=== PATIENT | male | born 1930 | race Caucasian/White ===

== ENCOUNTER 2017-08-28 11:31 | Inpatient (IN) | payer OTHER ==
[~2017-08-28] VITALS: Ht 177.8 cm; Wt 55.8 kg
[~2017-08-28 11:31] MED LIST: FUROSEMIDE40 MG PO; LASIX40 MG PO; LISINOPRIL20 MG PO; LORTAB 7.5-5001 EACH PO; LOVASTATIN40 MG PO; LOVENOX40 MG/0.4 SC; VOLTAREN100 GM
--- OUTSIDE RECORDS SUMMARY | 2017-08-28 11:34 | XMS REPORT ---
Author Author [facility] Address Unknown Phone Unavailable Care Team Providers Care Pulvi Mixer Operator Name Role Phone JOSÉ SKELTON Unavailable Unavailable Problems This patient has no known problems. Allergies, Adverse Reactions, Alerts This patient has no known allergies or adverse reactions. Medications This patient has no known medications. Results Test Description Test Time Test Comments Text Results Atomic Results Result Comments Stress Test - Treadmill ONLY [address] [address] Patient Name : NABIL ANGEL MR #: [id number] : 1930 Age/Sex: 86/M Adm Physician : JOSÉ SKELTON MD Admit Date : Location : [place] Room/Bed : REPORT: Cardiology Report DATE OF STUDY: February 05, 2017 LEXISCAN NUCLEAR STRESS TEST INDICATIONS: Chest pain. DESCRIPTION OF PROCEDURE: After informed consent, patient was brought to the stress lab. He was given 10.8 millicuries of technetium 99 Myoview, and myocardial perfusion SPECT images were obtained in the horizontal long-axis, short-axis and vertical long -axis views. Subsequently, patient was 0.4 mg of Lexiscan over 10 seconds. Patient was given 32.3 millicuries of technetium 99 Myoview, and myocardial perfusion SPECT images were obtained in the horizontal long-axis, short-axis and vertical long-axis views. Gating images were also obtained. The patient tolerated this procedure without any complications. REPORT: Baseline EKG shows sinus rhythm at 65 beats per minute, normal axis, LVH, right bundle right block, secondary ST-T changes. PARAMETERS 1. Resting heart rate is 65 beats per minute. 2. Maximum heart rate 88 beats per minute. 3. Resting blood pressure 120/54 mmHg. 4. Maximum blood pressure 145/57 mmHg. REASON FOR TERMINATION: Endpoint attained. INTERPRETATION 1. Negative for chest pain. 2. Negative for arrhythmias. 3. Blood pressure response consistent with Lexiscan. 4. No significant ST-T changes seen during Lexiscan infusion compared to baseline. 5. Analysis of SPECT images reveals a small area of decreased radioisotope uptake in the inferior wall both during rest and stress without any significant reversible perfusion defects. CONCLUSION: 1. This study demonstrates a small area of inferior wall infarction. No significant ischemia is noted. 2. Left ventricle appears to be dilated. 3. Diffuse hyperkinesis of the left ventricle is noted. 4. Overall ejection fraction is 39%. Job#: [id number] EV Signature Date Dictated By: JOSÉ SKELTON MD Transcribed By: MARIANELA on 02/12/17 <Electronically signed by JOSÉ SKELTON MD><<Signature on File>>02/13/17 [id number] COPY TO:
[2017-08-28] MEDS ORDERED: PANTOPRAZOLE 40 MG 10ML VIAL IV STA (11:44)
[2017-08-28 11:57] LABS: BASOPHILS % 0.1 % (0.0-1.0); HEMATOCRIT 38.9 % (38.2-49.6); HEMOGLOBIN 12.9 g/dL (14.0-18.0); LYMPHOCYTES # (AUTO) 0.5 (1.0-3.2); LYMPHOCYTES % 3.3 % (18.0-39.1); MEAN CORPUSCULAR HEMOGLOBIN 30.7 pg (28-32); MEAN CORPUSCULAR HGB CONC 33.2 g/dL (31-35); MEAN CORPUSCULAR VOLUME 92.6 fL (81-99); MONOCYTES # (AUTO) 1.4 (0.2-0.8); MONOCYTES % 10.2 % (4.4-11.3); NEUTROPHILS # (AUTO) 11.8 (2.1-6.9); PLATELET COUNT 232 x10e3/uL (140-360); RED CELL DISTRIBUTION WIDTH 14.7 % (11.7-14.4)
[2017-08-28 12:10] LABS: INR 1.41; PROTHROMBIN TIME 16.2 seconds (11.9-14.5)
[2017-08-28 12:11] LABS: PARTIAL THROMBOPLASTIN TIME 27.3 seconds (23.8-35.5)
[2017-08-28 12:18] LABS: ALBUMIN 3.7 g/dL (3.5-5.0); ALBUMIN/GLOBULIN RATIO 1.2 (0.8-2.0); ANION GAP 16.2 mmol/L (8-16); CALCIUM 9.1 mg/dL (8.4-10.2); CREATININE, SERUM 2.26 mg/dL (0.72-1.25); MAGNESIUM 2.4 MG/DL (1.3-2.1); POTASSIUM 5.2 mmol/L (3.5-5.1)
--- NOTE | 2017-08-28 12:18 | Diagnostic Imaging Report ---
PROCEDURE:CHEST SINGLE (PORTABLE) TECHNIQUE:Portable AP chest INDICATION:Shortness of breath COMPARISON:[facility], DX, CHEST SINGLE (PORTABLE), 12/27/2016, 5:42. FINDINGS: Small pleural effusions (right greater than left) with mild cardiomegaly and central vascular prominence. Bilateral lower lobe alveolar opacities. Multiple calcified granulomas bilaterally. Stable aortic arch calcification. Grossly intact skeleton. CONCLUSION: 1. Cardiomegaly with small pleural effusions and central vascular congestion. 2. Bilateral lower lobe airspace opacities consistent with atelectasis with or without superimposed pneumonia. Dictated by: Raymond Templeton M.D. on 08/28/2017 at 12:19 Electronically approved by: Raymond Templeton M.D. on 08/28/2017 at 12:19
[2017-08-28] MEDS ORDERED: SODIUM CHLORIDE 0.9% 1000ML 1,000 ML IV STA (12:21)
[2017-08-28 12:24] LABS: CREATINE KINASE MB 4.2 ng/mL (0-5.0)
[2017-08-28] MEDS ORDERED: LEVOFLOXACIN 500MG/D5W 100ML 100 ML IV ONE (12:30)
[2017-08-28] MEDS ORDERED: LEVALBUTEROL HCL SOLN NEBU 0.63 MG/3 ML NEB INH ONE (12:30)
[2017-08-28] MEDS ORDERED: METHYLPREDNISOLONE SOD SUCC 125 MG/2ML VIAL IV ONE (12:30)
[2017-08-28] MEDS ORDERED: FUROSEMIDE INJ 10 MG/ML 4 ML VIAL IV ONE (12:30)
[2017-08-28] MEDS ORDERED: IPRATROPIUM BROMIDE 0.02% 2.5 ML NEB NEB ONE (12:30)
[2017-08-28] MEDS ORDERED: ASPIRIN 81 MG CHEW TAB PO ONE (12:45)
[2017-08-28] MEDS ORDERED: LEVOFLOXACIN 250MG/D5W 50ML 50 ML IV SCH (12:45)
[2017-08-28] MEDS: LEVALBUTEROL HCL SOLN NEBU 1.25 MG/3 ML NEB INH SCH ×2 (13:00→20:00)
[2017-08-28] MEDS ORDERED: SOD POLYSTYRENE SULFONATE SUSP 15 GM/60 ML BTL PO ONE (13:00)
[2017-08-28] MEDS: IPRATROPIUM BROMIDE 0.02% 2.5 ML NEB NEB SCH ×2 (13:00→20:00)
[2017-08-28] MEDS ORDERED: METHYLPREDNISOLONE SOD SUCC 40 MG/ML VIAL IV SCH (14:00)
[2017-08-28 14:10] VITALS: BP 128/72
[2017-08-28 14:27] LABS: BILIRUBIN,URINE NEGATIVE (NEGATIVE); CLARITY,URINE CLEAR (CLEAR); COLOR,URINE YELLOW (YELLOW); KETONES,URINE NEGATIVE (NEGATIVE); LEUKOCYTE ESTERASE ,URINE NEGATIVE (NEGATIVE); NITRITE,URINE NEGATIVE (NEGATIVE); URINE UROBILINOGEN 0.2 mg/dL (0.2 - 1)
[2017-08-28 14:29] LABS: PROTEIN,URINE DIPSTICK 1+ (NEGATIVE)
[2017-08-28 14:30] VITALS: BP 128/72
[2017-08-28 14:40] LABS: BACTERIA,URINE RARE /HPF; EPITHELIAL CELLS,URINE RARE /LPF
[2017-08-28 16:29] LABS: CHOL/HDL RATIO 3.4 (3.9-4.7)
[2017-08-28] MEDS: METOPROLOL TARTRATE 25 MG TAB PO SCH (16:30)
[2017-08-28] MEDS ORDERED: FUROSEMIDE INJ 10 MG/ML 4 ML VIAL IV SCH (17:00)
[2017-08-28] MEDS ORDERED: FAMOTIDINE 20 MG/2 ML VIAL IV SCH (17:00)
[2017-08-28 21:12] LABS: CREATINE KINASE MB 4.4 ng/mL (0-5.0)
[2017-08-29] VITALS: BP 128/72
[2017-08-29] MEDS: IPRATROPIUM BROMIDE 0.02% 2.5 ML NEB NEB SCH ×4 (01:00→19:55)
[2017-08-29] MEDS: LEVALBUTEROL HCL SOLN NEBU 1.25 MG/3 ML NEB INH SCH ×4 (01:00→19:55)
--- NOTE | 2017-08-29 01:34 | Diagnostic Imaging Report ---
EXAM: CT Chest WITHOUT contrast 08/29/2017 12:49 AM INDICATION: Shortness of breath COMPARISON: None TECHNIQUE: Chest was scanned utilizing a multidetector helical scanner from the lung apex through the level of the adrenal glands without administration of IV contrast. Absence of intravenous contrast decreases sensitivity for detection of lymphadenopathy and vascular pathology. Coronal and sagittal reformations were obtained. Routine protocol was performed. IV CONTRAST: None RADIATION DOSE: Total DLP: 423.66 mGy*cm Estimated effective dose: (DLP x 0.014 x size factor) mSv COMPLICATIONS: None FINDINGS: LINES/ TUBES: None. LUNGS AND AIRWAYS: Evidence of alveolar groundglass and interlobular septi opacities compatible with pulmonary edema. Airways are normal. PLEURA: Moderate bilateral pleural effusions. Calcified granuloma in the right upper lobe HEART AND MEDIASTINUM: The thyroid gland is normal. No mediastinal, hilar or axillary lymphadenopathy. The heart is moderately enlarged.. There is no pericardial effusion. There are significant atherosclerotic calcifications in the aorta and coronary arteries. 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 SOFT TISSUES: Unremarkable. IMPRESSION: 1. Findings are compatible with cardiogenic pulmonary edema and bilateral pleural effusions. 2. 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 Signed by: Dr. Lane Win M.D. on 08/29/2017 1:30 AM
--- NOTE | 2017-08-29 01:56 | Diagnostic Imaging Report ---
EXAMINATION: CHEST SINGLE (PORTABLE) INDICATION: CHF COMPARISON: 08/28/2017 FINDINGS: TUBES and LINES: None. LUNGS: Lungs are well inflated. There are bibasilar atelectasis. There is worsening perihilar interstitial opacities, consistent with interstitial edema. PLEURA: Increase in bilateral pleural effusions HEART AND MEDIASTINUM: Cardiac size is moderately enlarged. There are atherosclerotic calcifications within the aorta. BONES AND SOFT TISSUES: No acute osseous lesion. Soft tissues are unremarkable. UPPER ABDOMEN: No free air under the diaphragm. IMPRESSION: Interval worsening of cardiogenic pulmonary edema and bilateral pleural effusions. Signed by: Dr. Lane Win M.D. on 08/29/2017 1:53 AM
[2017-08-29 06:17] LABS: BASOPHILS % 0.1 % (0.0-1.0); HEMOGLOBIN 12.9 g/dL (14.0-18.0); LYMPHOCYTES # (AUTO) 0.3 (1.0-3.2); LYMPHOCYTES % 4.2 % (18.0-39.1); MEAN CORPUSCULAR HGB CONC 33.1 g/dL (31-35); MEAN CORPUSCULAR VOLUME 93.8 fL (81-99); MONOCYTES # (AUTO) 0.3 (0.2-0.8); MONOCYTES % 4.2 % (4.4-11.3); NEUTROPHILS # (AUTO) 7.2 (2.1-6.9); PLATELET COUNT 217 x10e3/uL (140-360); RED BLOOD COUNT 4.16 x10e6/uL (4.3-5.7); RED CELL DISTRIBUTION WIDTH 14.6 % (11.7-14.4)
[2017-08-29 06:42] LABS: CREATINE KINASE MB 5.8 ng/mL (0-5.0)
[2017-08-29 06:48] LABS: ALBUMIN 3.5 g/dL (3.5-5.0); ALBUMIN/GLOBULIN RATIO 1.1 (0.8-2.0); ANION GAP 21.7 mmol/L (8-16); CREATININE, SERUM 2.63 mg/dL (0.72-1.25); POTASSIUM 4.7 mmol/L (3.5-5.1)
[2017-08-29] MEDS ORDERED: FUROSEMIDE INJ 10 MG/ML 4 ML VIAL IV ONE (07:15)
[2017-08-29 08:00] VITALS: BP_SYST 107; BP_SYST 128; BP_DIAS 54; BP_DIAS 72
[2017-08-29] MEDS: ASPIRIN 81 MG ENTERIC COATED PO SCH (09:00)
[2017-08-29] MEDS ORDERED: ASPIRIN 325 MG TAB PO SCH (09:00)
[2017-08-29] MEDS: METOPROLOL TARTRATE 25 MG TAB PO SCH ×2 (09:00→16:48)
[2017-08-29] MEDS ORDERED: FUROSEMIDE INJ 10 MG/ML 4 ML VIAL IV SCH (09:00)
--- NOTE | 2017-08-29 09:58 | Consultation ---
DATE OF CONSULTATION: August 28, 2017 REASON FOR CONSULTATION: CHF. HISTORY OF PRESENT ILLNESS: Mr. Grant is an 87-year-old gentleman with past medical history as listed below who presented with complaints of shortness of breath for the last 2 weeks. Patient apparently has been getting progressively short of breath for the last 2 weeks. He has also had cough with expectoration and mustard-colored phlegm. About a week back, he reportedly was working in his yard pulling out weeds. He was told he had allergies and was given steroids. Symptoms got worse in the last couple of days and so was brought to the hospital. He was found to be in CHF and was admitted. The patient's children are at the bedside and they relate to a lot of the history. REVIEW OF SYSTEMS: CONSTITUTIONAL: Has some fatigue and weakness. HEENT: No headache, blurring of vision, seizures or syncope. CARDIOVASCULAR: No chest pain. He has dyspnea. He has some leg edema. RESPIRATORY: Has cough with expectoration. No fever. GI: No abdominal pain, vomiting or diarrhea. : No dysuria, frequency or incontinence. ALLERGIES: NO KNOWN DRUG ALLERGIES. MEDICATIONS: See list. PAST MEDICAL HISTORY: 1. History of CHF. 2. History of pleural effusion. 3. History of carotid artery disease, status post carotid endarterectomy. 4. History of weight loss. PAST SURGICAL HISTORY: History of bilateral carotid endarterectomy 20 years back. SOCIAL HISTORY: Quit smoking in . Does not drink alcohol. FAMILY HISTORY: Noncontributory. PHYSICAL EXAMINATION: VITALS: Heart rate is 104, blood pressure is 126/85. Respiratory rate is 18. GENERAL: A thin-built gentleman. He appears emaciated, not in any obvious distress. HEENT: Atraumatic. NECK: No JVD, bruit, thyromegaly or lymphadenopathy. Bilateral scars of CEA. CARDIOVASCULAR: First and 2nd heart sounds heard. No murmurs, rubs or gallops appreciated. CHEST: Decreased air entry at the bases. No adventitious sounds appreciated. ABDOMEN: Soft and nontender. EXTREMITIES: 1+ edema. IMAGING: Chest x-ray shows cardiomegaly with small pleural effusions, central vascular congestion, bilateral lower lobe air-space opacities. Consider atelectasis or superimposed pneumonia. LABORATORY DATA: WBC 13.7, hemoglobin 12.9, hematocrit 38.9, platelets are 232,000, sodium 138, potassium 5.2, chloride is 104. Bicarb is 23. BUN is 59. Creatinine is 2.2. AST is 96, ALT 105, total bilirubin 1.3. Alkaline phos was 114. BNP is 8955. EKG shows sinus tach at 115 beats per minute, extreme axis right bundle branch block, inferior infarct. T-wave inversions lateral leads. IMPRESSION 1. Congestive heart failure. 2. Renal failure. 3. Deranged LFTs. 4. Possible pneumonia. 5. History of carotid endarterectomy. PLAN: 1. IV diuresis. 2. Antibiotics as indicated. 3. Get echocardiogram to assess LV function and valvular function. 4. Will start him on beta blockers. 5. Will hold off on ANTONIA inhibitors due to renal failure. 6. Further cardiac workup depending on clinical course. 7. Elevated LFTs could be related to congested liver. 8. Discussed my impression and plan of management with the patient and the family and they understand. As always I appreciate and thank you very much for your referrals. Job#: [id number]
[2017-08-29] MEDS: FUROSEMIDE INJ 10 MG/ML 4 ML VIAL IV SCH (12:00)
[2017-08-29 12:02] VITALS: BP 114/56
[2017-08-29] MEDS ORDERED: LEVOFLOXACIN 250MG/D5W 50ML 50 ML IV SCH (13:00)
[2017-08-29 16:00] VITALS: BP 111/62
[2017-08-29 20:00] VITALS: BP 120/68
[2017-08-29 21:17] VITALS: BP 120/68
[2017-08-30] VITALS (8 sets, daily range): BP systolic 100–122; BP diastolic 58–76
[2017-08-30] MEDS: LEVALBUTEROL HCL SOLN NEBU 1.25 MG/3 ML NEB INH SCH ×4 (00:40→19:25)
[2017-08-30] MEDS: IPRATROPIUM BROMIDE 0.02% 2.5 ML NEB NEB SCH ×4 (00:40→19:20)
[2017-08-30] MEDS: FUROSEMIDE INJ 10 MG/ML 4 ML VIAL IV SCH ×2 (06:09→18:00)
[2017-08-30 08:21] LABS: CALCIUM 8.8 mg/dL (8.4-10.2); CREATININE, SERUM 3.22 mg/dL (0.72-1.25); MAGNESIUM 2.4 MG/DL (1.3-2.1)
[2017-08-30] MEDS: ASPIRIN 81 MG ENTERIC COATED PO SCH (09:00)
[2017-08-30] MEDS: METOPROLOL TARTRATE 25 MG TAB PO SCH ×2 (09:00→17:00)
[2017-08-31] VITALS (8 sets, daily range): BP systolic 99–126; BP diastolic 52–73
[2017-08-31] MEDS: LEVALBUTEROL HCL SOLN NEBU 1.25 MG/3 ML NEB INH SCH ×4 (01:00→19:10)
[2017-08-31] MEDS: IPRATROPIUM BROMIDE 0.02% 2.5 ML NEB NEB SCH ×4 (01:00→19:10)
[2017-08-31] MEDS: FUROSEMIDE INJ 10 MG/ML 4 ML VIAL IV SCH (06:06)
[2017-08-31] MEDS: METOPROLOL TARTRATE 25 MG TAB PO SCH ×2 (08:25→17:00)
[2017-08-31] MEDS: ASPIRIN 81 MG ENTERIC COATED PO SCH (08:25)
[2017-09-01] VITALS (7 sets, daily range): BP systolic 113–125; BP diastolic 58–80
[2017-09-01 06:26] LABS: ANION GAP 18.4 mmol/L (8-16); CALCIUM 8.6 mg/dL (8.4-10.2); CREATININE, SERUM 3.15 mg/dL (0.72-1.25); POTASSIUM 4.4 mmol/L (3.5-5.1)
[2017-09-01] MEDS: IPRATROPIUM BROMIDE 0.02% 2.5 ML NEB NEB SCH ×3 (07:00→20:30)
[2017-09-01] MEDS: LEVALBUTEROL HCL SOLN NEBU 1.25 MG/3 ML NEB INH SCH ×3 (07:00→20:30)
[2017-09-01] MEDS: METOPROLOL TARTRATE 25 MG TAB PO SCH ×2 (08:19→16:06)
[2017-09-01] MEDS: ASPIRIN 81 MG ENTERIC COATED PO SCH (08:19)
--- NOTE | 2017-09-01 12:22 | Diagnostic Imaging Report ---
PROCEDURE: CT CHEST WITHOUT CONTRAST CT scan of the chest WITHOUT intravenous contrast, using standard protocol. TECHNIQUE: The chest was scanned utilizing a multidetector helical scanner from the apex to the level of the adrenal glands. No IV or oral contrast was administered. Coronal and sagittal multiplanar reformations were obtained. COMPARISON: [facility], CT, CT CHEST WO, 08/29/2017, 0:38. INDICATIONS: PLEURAL EFFUSION DLP: 441.64 mGy-cm FINDINGS: Lines/tubes: None. Lungs and Airways: Bilateral lower lobe compressive atelectasis. Improvement in the pulmonary edema. Scattered calcified granulomas. Right upper lobe groundglass opacity is nonspecific. Pleura: Bilateral moderate size pleural effusions have not significantly increased. Scattered calcified pleural plaques. Heart and mediastinum: The thyroid gland is normal. Aortic, mitral annulus and coronary artery calcification. No significant mediastinal, hilar or axillary lymphadenopathy is seen. The heart is enlarged. Soft tissues: Normal. Abdomen: Vascular calcification. Bones: Age related degenerative disease of the spine. IMPRESSION: 1. Improvement in the pulmonary edema. 2. No significant change in the bilateral pleural effusions. Piter Noyola D.O. Dictated by: Piter Noyola D.O. on 09/01/2017 at 12:22 Electronically approved by: Piter Noyola D.O. on 09/01/2017 at 12:22
[2017-09-02] VITALS (7 sets, daily range): BP systolic 106–121; BP diastolic 58–80
[2017-09-02] MEDS: LEVALBUTEROL HCL SOLN NEBU 1.25 MG/3 ML NEB INH SCH ×6 (01:12→20:10)
[2017-09-02] MEDS: IPRATROPIUM BROMIDE 0.02% 2.5 ML NEB NEB SCH ×4 (01:12→20:10)
[2017-09-02 06:50] LABS: ANION GAP 17.1 mmol/L (8-16); CALCIUM 8.5 mg/dL (8.4-10.2); CREATININE, SERUM 2.7 mg/dL (0.72-1.25); POTASSIUM 4.1 mmol/L (3.5-5.1)
[2017-09-02] MEDS: METOPROLOL TARTRATE 25 MG TAB PO SCH ×2 (08:45→17:41)
[2017-09-03] VITALS (7 sets, daily range): BP systolic 109–126; BP diastolic 59–74
[2017-09-03] MEDS: IPRATROPIUM BROMIDE 0.02% 2.5 ML NEB NEB SCH ×4 (01:25→19:55)
[2017-09-03] MEDS: LEVALBUTEROL HCL SOLN NEBU 1.25 MG/3 ML NEB INH SCH ×4 (01:25→19:55)
[2017-09-03 06:01] LABS: BASOPHILS % 0.1 % (0.0-1.0); HEMATOCRIT 36.9 % (38.2-49.6); HEMOGLOBIN 12.8 g/dL (14.0-18.0); LYMPHOCYTES # (AUTO) 0.3 (1.0-3.2); LYMPHOCYTES % 1.6 % (18.0-39.1); MEAN CORPUSCULAR HEMOGLOBIN 30.7 pg (28-32); MEAN CORPUSCULAR HGB CONC 34.7 g/dL (31-35); MEAN CORPUSCULAR VOLUME 88.5 fL (81-99); MONOCYTES % 9.6 % (4.4-11.3); PLATELET COUNT 110 x10e3/uL (140-360); RED BLOOD COUNT 4.17 x10e6/uL (4.3-5.7); RED CELL DISTRIBUTION WIDTH 14.3 % (11.7-14.4)
[2017-09-03 06:22] LABS: ANION GAP 15.1 mmol/L (8-16); CALCIUM 8.3 mg/dL (8.4-10.2); CREATININE, SERUM 2.27 mg/dL (0.72-1.25); POTASSIUM 4.1 mmol/L (3.5-5.1)
[2017-09-03] MEDS: METOPROLOL TARTRATE 25 MG TAB PO SCH ×2 (09:03→16:43)
[2017-09-03] MEDS ORDERED: DIGOXIN INJ 0.25 MG/ML 2 ML AMP IV ONE (09:15)
--- NOTE | 2017-09-03 12:19 | Diagnostic Imaging Report ---
PROCEDURE: CHEST XRAY POST PROCEDURE COMPARISON: 08/29/2017. INDICATIONS: POST THORACENTESIS FINDINGS: Interval right thoracentesis with near-complete evacuation of moderate effusion. Trace pleural effusion persists. No pneumothorax. Moderate left pleural effusion, increased relative to plain film 08/29/2017. Cardiomediastinal contour remains obscured. No new consolidations. Calcified right upper lobe granuloma. No acute osseous abnormality. CONCLUSION: Interval right thoracentesis with near-complete evacuation of moderate right pleural effusion. No pneumothorax. Dictated by: Ford Morejon M.D. on 09/03/2017 at 12:19 Electronically approved by: Ford Morejon M.D. on 09/03/2017 at 12:19
--- NOTE | 2017-09-03 12:42 | Diagnostic Imaging Report ---
PROCEDURE: ULTRASOUND GUIDED THORACENTESIS COMPARISON: CT chest 09/01/2017 INDICATIONS:RT THORACENTESIS Communications Superintendent: Ford Morejon M.D. Sedation: None. The patient's heart rate and pulse oximetry were continuously monitored by the interventional radiology nurse. Blood pressure was monitored at 5 minute intervals. Additional medications: Lidocaine 1% for local anesthesia. Estimated blood loss: Minimal Blood products administered: None Implants/grafts: None Specimens: 1100 cc straw-colored pleural fluid Complications: No immediate Fluoroscopy time: Zero Contrast administered: Zero FINDINGS: After informed consent was obtained, the patient was placed in the sitting position and preliminary ultrasound of the posterior chest identified a safe route into the right pleural effusion. The overlying skin was prepped and draped in usual sterile fashion. Lidocaine 1% was used for local anesthesia. Under ultrasound guidance, a 5 Turkish Yueh needle was advanced into the pleural fluid, the catheter was advanced off the needle and connected to vacuum bottle, and 1100 cc straw-colored fluid were aspirated. The catheter was removed and a sterile, occlusive dressing was applied. The patient tolerated the procedure well and there were no immediate post-procedural complications. A post-thoracentesis chest radiograph will be obtained. CONCLUSION: Uncomplicated ultrasound-guided right thoracentesis with removal of 1100 cc of straw-colored fluid. Dictated by: Ford Morejon M.D. on 09/03/2017 at 12:41 Electronically approved by: Ford Morejon M.D. on 09/03/2017 at 12:41
[2017-09-04 00:47] VITALS: BP 106/66
[2017-09-04] MEDS: IPRATROPIUM BROMIDE 0.02% 2.5 ML NEB NEB SCH ×3 (01:05→13:00)
[2017-09-04] MEDS: LEVALBUTEROL HCL SOLN NEBU 1.25 MG/3 ML NEB INH SCH ×3 (01:05→13:00)
[2017-09-04 05:05] VITALS: BP 104/62
[2017-09-04 08:01] VITALS: BP 119/61
[2017-09-04 08:31] VITALS: BP 119/61
[2017-09-04 08:33] VITALS: BP 119/61
[2017-09-04] MEDS: METOPROLOL TARTRATE 25 MG TAB PO SCH (08:39)
[2017-09-04] MEDS ORDERED: DIGOXIN INJ 0.25 MG/ML 2 ML AMP IV ONE (08:45)
[2017-09-04 09:49] LABS: BASOPHILS % 0.1 % (0.0-1.0); HEMATOCRIT 37.1 % (38.2-49.6); HEMOGLOBIN 12.7 g/dL (14.0-18.0); LYMPHOCYTES # (AUTO) 0.2 (1.0-3.2); MEAN CORPUSCULAR HEMOGLOBIN 30.7 pg (28-32); MEAN CORPUSCULAR HGB CONC 34.2 g/dL (31-35); MEAN CORPUSCULAR VOLUME 89.6 fL (81-99); MONOCYTES # (AUTO) 1.4 (0.2-0.8); MONOCYTES % 7.2 % (4.4-11.3); NEUTROPHILS # (AUTO) 17.5 (2.1-6.9); NEUTROPHILS % 91.2 % (38.7-80.0); PLATELET COUNT 96 x10e3/uL (140-360); RED BLOOD COUNT 4.14 x10e6/uL (4.3-5.7); RED CELL DISTRIBUTION WIDTH 14.3 % (11.7-14.4)
[2017-09-04 11:51] VITALS: BP 114/59
--- NOTE | 2017-09-04 18:06 | Discharge Summary ---
DISCHARGE DIAGNOSES: 1. Acute exacerbation of congestive heart failure with systolic dysfunction. 2. Aortic stenosis. 3. Pulmonary edema, status post thoracentesis. 4. Chronic kidney disease stage 4. 5. Stress induced leukocytosis. 6. Medically debilitated. 7. Severe protein calorie malnutrition. CONSULTANTS: Cardiology. VITAL SIGNS: Temperature is 97.5, pulse 88. Respiratory is 18. Blood pressure 114/59, pulse ox 98% on room air. LAB FINDINGS: White count on discharge 19, likely stress induced from tachycardia, afebrile. Hemoglobin 12.7 hematocrit 37, platelets of 96,000. Coagulations normal. Chemistry: Sodium 136, potassium 4.1, chloride is 100, bicarbonate 25, anion gap of 15. BUN is 94. GFR is 27. Glucose is 115. Calcium is 8.3. LFTs are slightly elevated. Troponin slightly elevated above the baseline. BNP 8955. Albumin was 3.5. LDL was 97. Urinalysis was negative. Serology flu was negative. MICROBIOLOGY: Urine cultures negative. Blood cultures negative. IMAGING STUDIES: Chest x-ray on 08/28/2017 shows bilateral lower lobe airspace opacities consistent with atelectasis, small pleural effusions. CT chest showed pulmonary edema and bilateral pleural effusions. Repeat CT chest on 09/01/2017 showed improvement of pulmonary edema, but still showed some evidence of small pleural effusion. Ultrasound-guided thoracentesis had 1100 mL of straw-colored fluid removed on 09/03/2017. HOSPITAL COURSE: This is an 87-year-old male with history of heart failure, severely cachectic, severe protein calorie malnutrition who presents to the ED with complaints of shortness of breath ongoing for the last 2 weeks. Patient also reports having some productive cough, yellow sputum. Patient was admitted and cardiology was consulted. Patient was treated for underlying acute exacerbation of CHF. Patient was on IV diuretics while here. He was also on some antibiotics. Cardiology was consulted. Echo performed showed a low EF with 35% to 40% with aortic valve stenosis. Patient continued have pleural effusions in which a status post thoracentesis was performed on 09/03/2017 with 1100 mL of straw colored material. All cultures here were negative. On discharge, his white count was slightly elevated at 19, but he is afebrile and this is likely due to stress induced from his sinus tachycardia event that occurred last night which required digoxin. Patient has not had a fever while here over the last 72 hours. He denies any symptoms of cough, congestion or any other complaints. I discussed this with the family at bedside including the patient and including the patient's children, and they have agreed to follow up with the primary care physician either tomorrow or early next week. At this time, patient is doing well with no other complaints. They will need repeat labs at that time. They verbalized understanding. Patient was also given a prescription for antibiotics in the event he still has any cough or congestion or any fever, and I advised him in the event if he is having any issues that they should please bring him back to the ER for further evaluation. They verbalized understanding and they agreed with plan of care. Patient has been cleared by cardiology for discharge home. He will be discharged on oral metoprolol XL 12.5 mg twice daily. Will hold ANTONIA inhibitor due to the patient's renal failure of chronic kidney disease stage 4 due to concerns of hyperkalemia. On the day of discharge, vital signs stable, labs reviewed stable. The patient was seen and evaluated thoroughly and had no other complaints. The patient verbalized understanding and agrees with plan of care. He is to follow up with primary care physician as well as mechanical expert early next week. In the event of any worsening symptoms, the patient advised to come back to the ED for further evaluation. MEDICATIONS: See medication reconciliation form, including metoprolol 12.5 mg p.o. twice daily and Levaquin 500 mg one tablet p.o. daily for 7 days including Lasix 40 mg one tablet p.o. daily. DISPOSITION: Home. CONDITION ON DISCHARGE: Stable. DISCHARGE DIET: Heart healthy. FOLLOWUP INSTRUCTIONS: Follow up with primary care physician early next week or tomorrow if possible and mechanical expert early next week. In the event of any worsening symptoms, the patient is advised to come back to the ED for further evaluation. Discharge summary took greater than 35 minutes. MARY COOLEY MD Job#: [id number]
== END 2017-09-04 15:59 | disposition home or self-care (01) | DRG 291 ==
LOC: ER 11:31 → ERHOLD 13:02 → MED/SURG2 13:59
PROVIDERS: ADMIT Internal Medicine; ATTEND Internal Medicine
PROC: 0W993ZX Drainage of Right Pleural Cavity, Percutaneous Approach, Diagnostic (ICD-10-PCS; principal; 2017-09-03)
DX: I13.0 Hypertensive heart and chronic kidney disease with heart failure and stage 1 through stage 4 chronic kidney disease, or unspecified chronic kidney disease (principal); I50.23 Acute on chronic systolic (congestive) heart failure; E43 Unspecified severe protein-calorie malnutrition; N18.4 Chronic kidney disease, stage 4 (severe); J90 Pleural effusion, not elsewhere classified; E87.5 Hyperkalemia; K76.1 Chronic passive congestion of liver; I35.0 Nonrheumatic aortic (valve) stenosis; I47.1 Supraventricular tachycardia; R74.8 Abnormal levels of other serum enzymes; R53.81 Other malaise; I25.10 Atherosclerotic heart disease of native coronary artery without angina pectoris; Z87.891 Personal history of nicotine dependence
CPT/HCPCS: 32555; 36415; 71045; 71250; 74470; 80048; 80053; 80061; 81001; 82550; 82553; 82948; 83735; 83880; 84443; 84484; 85025; 85610; 85730; 87040; 87086; 87400; 93005; 93306; 94640; 97139; 99284; J1160; J1940; J1956; J2920; J2930; J7030